=== PATIENT | female | born 1935 | race Caucasian/White ===

== ENCOUNTER 2021-09-01 12:54 | Observation (INO) ==
[2021-09-01] MEDS ORDERED: 0.9 % Sodium Chloride 500 ML IVC ONE (13:12)
[2021-09-01] MEDS ORDERED: 0.9 % Sodium Chloride 1,000 ML ONE (13:13)
[2021-09-01 13:26] LABS: Basophils % 0.3 %; Eosinophils # 0.1 K/mcL (0.0-0.6); Eosinophils % 0.5 %; Hematocrit 42.9 % (35.3-44.9); Hemoglobin 13.9 g/dL (11.5-15.4); Immature Granulocytes % 0.2 % (0-4); Lymphocytes # 2.7 K/mcL (0.6-4.6); Lymphocytes % 28.1 %; Mean Corpuscular HGB Conc 32.4 g/dL (31.6-35.5); Mean Corpuscular Hemoglobin 30.2 pg (28.0-33.3); Mean Corpuscular Volume 93.3 fL (83.0-100.0); Mean Platelet Volume 10.1 fL (9.4-12.4); Monocytes # 0.6 K/mcL (0.0-1.3); Monocytes % 5.8 %; Neutrophils # 6.2 K/mcL (1.6-8.9); Platelet Count 284 K/mcL (140-400); Red Cell Distribution Width 12.8 % (11.5-14.5); Segmented Neutrophils % 65.1 %; White Blood Count 9.5 K/mcL (4.3-11.1)
[2021-09-01 13:33] LABS: INR 1.1; Prothrombin Time 12.8 Seconds (9.4-12.1)
[2021-09-01 13:35] LABS: Activated Partial Thrombo Time 29.9 Seconds (26.0-36.0)
[2021-09-01] MEDS ORDERED: DilTIAZem CD (24hr) 120 MG CAP.ER.24H PO STA (13:35)
[2021-09-01 14:06] LABS: Alanine Aminotransferase 30 Units/L (7-52); Albumin 4.1 g/dL (3.5-5.7); Albumin/Globulin Ratio 1.5 (1.1-2.2); Alkaline Phosphatase 125 Units/L (34-104); Aspartate Amino Transferase 24 Units/L (13-39); BUN/Creatinine Ratio 18 (6-26); Bilirubin,Total 0.5 mg/dL (0.3-1.0); Blood Urea Nitrogen 17 mg/dL (8-23); Calcium 9.3 mg/dL (8.6-10.3); Carbon Dioxide 25 mEq/L (23-29); Chloride 103 mEq/L (98-107); Globulin 2.8 g/dL (2.4-3.5); Potassium 3.9 mEq/L (3.5-5.1); Sodium 139 mEq/L (136-145); Total Protein 6.9 g/dL (6.4-8.9); eGFR For African Americans > 60 (> 60); eGFR For Non-African Americans 56 (> 60)
[2021-09-01 14:23] LABS: Glucose 108 mg/dL (70-105); Osmolality,Calculated 290 (280-300)
[2021-09-01 14:46] LABS: Troponin I < 0.03 ng/mL (< 0.04)
[2021-09-01 15:01] LABS: Thyroid Stimulating Hormone 1.647 mcIU/mL (0.340-5.600)
[2021-09-01] MEDS ORDERED: DilTIAZem 50 MG/50 ML IV.SOLN IVC SCH (16:00)
[2021-09-01] MEDS ORDERED: Naloxone 0.4 MG/ML INJ IVP PRN (16:29)
[2021-09-01] MEDS ORDERED: *HR* Heparin 5,000 UNIT/ML VIAL IVP PRN ×2 (16:29)
[2021-09-01] MEDS ORDERED: Melatonin 3 MG TABLET PO PRN (16:29)
[2021-09-01] MEDS ORDERED: Acetaminophen 325 MG TABLET PO PRN (16:29)
[2021-09-01] MEDS ORDERED: *HR* Heparin 5,000 UNIT/ML VIAL IVP ONE (16:29)
[2021-09-01] MEDS ORDERED: Heparin 25,000UNIT/250ML 1/2NS 25,000 UNIT/250 ML IV.SOLN IVC SCH (16:30)
[2021-09-01] MEDS ORDERED: Perflutren Lipid Microsphere 1.3 ML in 0.9 % Sodium Chloride 8.7 ML IVP PRN (16:31)
[2021-09-01] MEDS: Metoprolol XL (24 HR) Succ 25 MG TAB.ER.24H PO SCH (18:02)
[2021-09-02] MEDS: DilTIAZem 50 MG/50 ML IV.SOLN IVC SCH ×3 (01:00→11:25)
[2021-09-02 06:08] LABS: Basophils % 0.4 %; Eosinophils # 0.1 K/mcL (0.0-0.6); Eosinophils % 1.3 %; Hemoglobin 12.4 g/dL (11.5-15.4); Immature Granulocytes % 0.3 % (0-4); Lymphocytes % 26.1 %; Mean Corpuscular HGB Conc 33.5 g/dL (31.6-35.5); Mean Corpuscular Volume 92.5 fL (83.0-100.0); Monocytes # 0.6 K/mcL (0.0-1.3); Monocytes % 7.7 %; Neutrophils # 4.9 K/mcL (1.6-8.9); Platelet Count 228 K/mcL (140-400); Red Cell Distribution Width 12.8 % (11.5-14.5); Segmented Neutrophils % 64.2 %; White Blood Count 7.6 K/mcL (4.3-11.1)
[2021-09-02 06:30] LABS: BUN/Creatinine Ratio 21 (6-26); Blood Urea Nitrogen 17 mg/dL (8-23); Calcium 8.5 mg/dL (8.6-10.3); Carbon Dioxide 24 mEq/L (23-29); Chloride 109 mEq/L (98-107); Glucose 99 mg/dL (70-105); Osmolality,Calculated 290 (280-300); Potassium 4.2 mEq/L (3.5-5.1); Sodium 139 mEq/L (136-145); eGFR For African Americans > 60 (> 60); eGFR For Non-African Americans > 60 (> 60)
[2021-09-02 06:40] LABS: Chol/HDL Ratio 2.9 (0-4.9)
[2021-09-02] MEDS: Metoprolol XL (24 HR) Succ 25 MG TAB.ER.24H PO SCH (08:23)
[2021-09-02] MEDS: lisinopriL 5 MG TABLET PO SCH (08:23)
[2021-09-02] MEDS: Aspirin Enteric Coated 81 MG Tablet PO SCH (08:23)
[2021-09-02] MEDS: DilTIAZem CD (24hr) 120 MG CAP.ER.24H PO SCH (10:06)
[2021-09-02] MEDS ORDERED: *HR* Heparin 5,000 UNIT/ML VIAL IVP PRN ×2 (14:37)
[2021-09-02] MEDS ORDERED: Heparin 25,000UNIT/250ML 1/2NS 25,000 UNIT/250 ML IV.SOLN IVC SCH (14:45)
[2021-09-02 19:15] VITALS: O2SAT 97
[2021-09-02] MEDS ORDERED: Apixaban 5 MG TABLET PO SCH (21:00)
[2021-09-02] MEDS: Apixaban 5 MG TABLET PO SCH (21:06)
[2021-09-03 03:57] VITALS: TEMP 98
[2021-09-03 07:33] VITALS: BP 126/77; PULSE 126
[2021-09-03] MEDS: lisinopriL 5 MG TABLET PO SCH (07:33)
[2021-09-03] MEDS: Apixaban 5 MG TABLET PO SCH (07:34)
[2021-09-03] MEDS: DilTIAZem CD (24hr) 120 MG CAP.ER.24H PO SCH (07:34)
[2021-09-03] MEDS: Metoprolol XL (24 HR) Succ 25 MG TAB.ER.24H PO SCH (07:34)
[2021-09-03] MEDS: Aspirin Enteric Coated 81 MG Tablet PO SCH (07:34)
[2021-09-03] MEDS ORDERED: Metoprolol XL (24 HR) Succ 25 MG TAB.ER.24H PO ONE ×2 (09:22→10:00)
== END 2021-09-03 11:20 | disposition home or self-care (01) ==
LOC: EMEROOARM 12:54 → 2ANU 12:54 → SUATTDRO 16:43 → 2ANU 17:33
PROVIDERS: ADMIT Student in an Organized Health Care Education/Training Program; ATTEND Internal Medicine